=== PATIENT | female | born 2000 | race Caucasian/White ===

== ENCOUNTER → 2023-01-16 | Outpatient (CLI) | payer MEDICAID, SELFPAY ==
[2023-01-16 11:17] LABS: Absolute Lymphocyte Count 1.41 X10^3/uL (0.83-4.51); Absolute Neutrophil Count 4.7 X10^3/uL (2.0-7.7); Basophil# 0.03 X10^3/uL; Basophil% 0.5 % (0-1); Eosinophil# 0.08 X10^3/uL; Eosinophils% 1.2 % (0-5); Hematocrit 41.2 % (37-47); Hemoglobin 13.9 g/dL (12.0-15.0); Lymphocyte # 1.41 X10^3/ul (0.83-4.51); Lymphocyte % 21.3 % (19-41); Mean Corp Hgb Conc 33.7 g/dL (32-36); Mean Corpuscular Hgb 29.7 pg (27.0-32.0); Mean Platelet Vol. 10.8 fl (6.2-12.0); Monocyte# 0.42 X10^3/uL; Monocyte% 6.3 % (0-10); NRBC Flagged by Analyzer 0 % (0-5); Neutrophil # 4.68 X10^3/uL (2.7-7.7); Neutrophil % 70.5 % (47-70); Platelet Count 208 K/mm3 (150-450); RBC Distribution Width CV 12.8 % (11.6-14.6); RBC Distribution Width SD 41.4 fl (35.1-43.9); Red Blood Count 4.68 M/mm3 (4.2-5.4); White Blood Count 6.6 K/mm3 (4.4-11.0)
[2023-01-16 12:21] LABS: HIV - WCH Non-Reactive (Nonreactive); Hepatitis B Surface Antigen Non-Reactive (Nonreactive); Hepatitis C Antibody Non-Reactive (Nonreactive); Rubella IgG Reactive (Nonreactive); Syphilis Antibodies Non-reactive
[2023-01-17 22:06] LABS: Chlamydia By Nucleic Acid AMP Negative (Negative)
[2023-01-18 14:20] LABS: Gonococcus By Nucleic Acid AMP Negative (Negative)
[2023-01-23 16:31] LABS: HPV Reflexed? NOT INDICATED
== END | disposition home or self-care (01) ==
PROVIDERS: Referring Provider Obstetrics & Gynecology; Visit Provider Obstetrics & Gynecology
DX: Z34.90 Encounter for supervision of normal pregnancy, unspecified, unspecified trimester (principal); Z12.4 Encounter for screening for malignant neoplasm of cervix
CPT/HCPCS: 36415; 85025; 86703; 86762; 86780; 86803; 86850; 86900; 86901; 87086; 87340; 87491; 87591; 88175; G0145

== ENCOUNTER → 2023-06-04 | Outpatient (CLI) | payer MEDICAID, SELFPAY ==
[2023-06-04 16:46] LABS: Absolute Lymphocyte Count 1.79 X10^3/uL (0.83-4.51); Basophil# 0.06 X10^3/uL; Basophil% 0.6 % (0-1); Eosinophil# 0.18 X10^3/uL; Eosinophils% 1.8 % (0-5); Hematocrit 32.4 % (37-47); Hemoglobin 10.2 g/dL (12.0-15.0); Lymphocyte # 1.79 X10^3/ul (0.83-4.51); Lymphocyte % 17.8 % (19-41); Mean Corp Hgb Conc 31.5 g/dL (32-36); Mean Platelet Vol. 10.5 fl (6.2-12.0); Monocyte# 0.73 X10^3/uL; Monocyte% 7.3 % (0-10); NRBC Flagged by Analyzer 0 % (0-5); Neutrophil % 69.7 % (47-70); Platelet Count 212 K/mm3 (150-450); RBC Distribution Width CV 13.6 % (11.6-14.6); RBC Distribution Width SD 45.7 fl (35.1-43.9); Red Blood Count 3.52 M/mm3 (4.2-5.4)
[2023-06-04 17:07] LABS: Glucose Challenge Gest 1H 50g 108 mg/dL (70-140)
[2023-06-04 21:38] LABS: HIV - WCH Non-Reactive (Nonreactive); Syphilis Antibodies Non-reactive
== END | disposition home or self-care (01) ==
PROVIDERS: Referring Provider Obstetrics & Gynecology; Visit Provider Obstetrics & Gynecology
DX: O09.90 Supervision of high risk pregnancy, unspecified, unspecified trimester (principal); Z13.1 Encounter for screening for diabetes mellitus; Z3A.00 Weeks of gestation of pregnancy not specified
CPT/HCPCS: 36415; 82950; 85025; 86703; 86780

== ENCOUNTER → 2023-06-28 | Outpatient (CLI) | payer MEDICAID, SELFPAY ==
--- NOTE | 2023-06-28 08:05 | US_ITS ---
STUDY: SECOND AND THIRD TRIMESTER OBSTETRICAL ULTRASOUND - LIMITED REASON FOR EXAM: Female, 23 years old growth -- 32 weeks LMP: November 15, 2022. PRIOR ULTRASOUND: None. TECHNIQUE: Transabdominal TECHNICAL QUALITY: Adequate. FINDINGS: There is a single intrauterine fetus. The fetus is in a cephalic presentation. There is demonstrated cardiac activity with a heart rate of 150 bpm. There is a normal amniotic fluid volume. The largest amniotic fluid pocket measures 5.0 cm. The amniotic fluid index (VIDHYA) is 14.8 cm. The placenta is posterior in location and is not low lying. There are Grade 1 placental changes. The cervix measures 4.1 cm in length. BIOMETRY: BPD: 8.7 cm: 35 weeks, 1 days HC: 30.1 cm: 34 weeks, 3 days AC: 30.2 cm: 34 weeks, 1 days FL: 6.4 cm: 33 weeks, 0 days Age by LMP: 32 weeks, 1 days. FAIZA by LMP: August 22, 2023. age by current US: 34 weeks, 0 days. FAIZA by current US: August 09, 2023. Estimated weight: 2343 grams, +/- 351 grams, 91 percentile. US/OB Limited With Biometrics IMPRESSION: Single live intrauterine gestation with a mean gestational age of 34 weeks. Electronically Signed: Charles Cr MD at 14:04 EDT ,
== END | disposition home or self-care (01) ==
LOC: OPUS 08:04
PROVIDERS: Referring Provider Obstetrics & Gynecology; Visit Provider Obstetrics & Gynecology
DX: O98.511 Other viral diseases complicating pregnancy, first trimester (principal); U07.1 COVID-19; Z3A.32 32 weeks gestation of pregnancy
CPT/HCPCS: 76816

== ENCOUNTER → 2023-07-11 | Outpatient (CLI) | payer MEDICAID, SELFPAY | END | disposition home or self-care (01) | LOC: LABSPEC 11:46 | PROVIDERS: Referring Provider Registered Nurse; Visit Provider Registered Nurse | DX: O23.40 Unspecified infection of urinary tract in pregnancy, unspecified trimester (principal) | CPT/HCPCS: 87086 ==

== ENCOUNTER → 2023-07-26 | Outpatient (CLI) | payer MEDICAID, SELFPAY ==
--- NOTE | 2023-07-26 08:03 | US_ITS ---
HISTORY: growth. TECHNIQUE: Transabdominal pelvic ultrasound was performed. 53 images. COMPARISON: 06/28/2023. FINDINGS: INTRAUTERINE GESTATION(s): Single. PRESENTATION: Cephalic. HEART MOTION: 150 bpm. PLACENTA: Fundal, grade 2. No placenta previa. CERVIX: Not well-visualized. AMNIOTIC FLUID INDEX (VIDHYA): 17.4 cm. Main vertical pocket 9.9 cm. biometry- BIPARIETAL DIAMETER: 9.3 cm, corresponding to 38 weeks 0 days. HEAD CIRCUMFERENCE: 34.2 cm, corresponding to 39 weeks 3 days. ABDOMINAL CIRCUMFERENCE: 34.9 cm, corresponding to 38 weeks 5 days. FEMUR LENGTH: 6.9 cm, corresponding to 35 weeks 3 days. ESTIMATED GESTATIONAL AGE: 38 weeks 0 days. ESTIMATED DUE DATE (FAIZA): 08/09/2023. ESTIMATED WEIGHT: 3357 g corresponding to 91st percentile US/OB Limited With Biometrics IMPRESSION: Single living intrauterine with an estimated gestational age of 38 weeks 0 days. Electronically Signed: Lorenza Capellan MD at 12:50 EDT ,
== END | disposition home or self-care (01) ==
PROVIDERS: Referring Provider Obstetrics & Gynecology; Visit Provider Obstetrics & Gynecology
DX: O23.43 Unspecified infection of urinary tract in pregnancy, third trimester (principal); Z3A.36 36 weeks gestation of pregnancy; O98.511 Other viral diseases complicating pregnancy, first trimester; U07.1 COVID-19
CPT/HCPCS: 76816; 87081; 87086; 87088

== ENCOUNTER → 2023-07-26 | Outpatient (CLI) | payer MEDICAID, SELFPAY | END | disposition home or self-care (01) | LOC: LABSPEC 14:01 | PROVIDERS: Visit Provider Advanced Practice Midwife | DX: Z34.90 Encounter for supervision of normal pregnancy, unspecified, unspecified trimester (principal) | CPT/HCPCS: 87081 ==

== ENCOUNTER 2023-08-11 21:28 | Outpatient (CLI) | payer MEDICAID, SELFPAY ==
[2023-08-11 21:38] VITALS: BMI 31.8
[2023-08-11 21:47] VITALS: BP 118/71; PULSE 111; PULSE 112; TEMP 37.1; O2SAT 98
[2023-08-11 22:12] VITALS: PULSE 102; O2SAT 98
[2023-08-11 22:13] LABS: ROM Internal Control Test YES-OK TO RESULT pt. (Internal QC); Record Kit Lot#, ROM+ K1409
[2023-08-11 22:31] LABS: Color, Urine Yellow (Yellow); Glucose, Dipstick Normal (Normal); Ketone-Dipstick Negative (Negative); Leukocyte Esterase-Dipstick 100 /ul (Negative); Nitrite-Dipstick Negative (Negative); Occult Blood-Urine Negative /ul (Negative); Protein-Dipstick 15 mg/dl (Negative); Urine Bilirubin Dipstick Negative (Negative); Urine Clarity Clear (Clear); Urine Urobilinogen Normal (Normal)
[2023-08-11 22:32] LABS: ROM Patient Test Negative (Negative)
--- NOTE | 2023-08-11 23:35 | OB.TRI.NOTE ---
HPI - General HPI Narrative SHELLEY CHAPPELL, is a 23 y/o @ 38 weeks 3 days who presents to L&D with contractions. upon exam per nursing she was found to be just a half of a cm dilated and having very mild infrequent contractions. She was monitored for 84 minutes. Maternal Data Information FAIZA Calculator Estimated Delivery Date Method Current WG Current Estimate 08/22/23 LMP (Uncertain) 38w 4d Other Estimates 08/19/23 Ultrasound #1 39w 0d PFSH PFSH Home Medications multivitamin no.47-iron fum 27 mg-folate no.1 1 mg-dha 300 mg capsule (PNV-DHA) 1 cap PO 01/11/23 [History Last Taken 08/11/23] aspirin 81 mg tablet,delayed release 81 mg PO DAILY 05/31/23 [History Last Taken 08/11/23] famotidine 20 mg tablet (Pepcid) 20 mg PO DAILY 05/31/23 [History Last Taken Unknown] ferrous sulfate 325 mg (65 mg iron) tablet 325 mg PO DAILY 06/13/23 [History Last Taken Unknown] Allergy/AdvReac Type Severity Reaction Status Date / Time No Known Allergies Allergy Verified 08/11/23 21:38 Social History adopted: No household members: significant other current occupational status: employed 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 current occupational exposures/hazards: No pets and animals: Yes (Not managing litterbox) pets and animals: cat(s) history of recent travel: No sexually active: Yes Smoking Status: Former smoker Electronic Cigarette Use: with nicotine alcohol intake: former year quit: 2021 substance use type: does not use well-balanced diet: daily or most days caffeine: Yes Type: carbonated beverages Number of servings: 1 eating out: 4 or more times/week during the past year weight has: remained stable what type of physical activity do you participate in: none rosie/religious: None seatbelt use: always do you feel safe at home: Yes additional social history: BF- Fernando [employer] History 2 Elective abortions Hx Para 0 Spontaneous abortions 1 Hx # Term Pregnancies Ectopic pregnancies Hx # Pregnancies Multiple births # of living children 0 Past Pregnancies Del. Date Name GA/Weeks Outcome Route Bth Weight Infant Gen Labor Lgth Anesthesia Del Locatn Provider FOB 11/30/21 miscarriage 4-8 wks Visit Details Expected Delivery Route/Plan Labor Preferences- CB/BF classes: enc labor support person: labor intervention preferences: [] pain management options preferred: [] cut cord/dad catch: [] : [] PP control planned: [] discussed possible routes of delivery and associated risks: [] special requests: [] Plans Covid status: + 1st trim Flu vaccine: 07/11 Tdap vaccine: 07/11 Rhogam: [] LARC form signed: 07/11 Problem list reviewed and updated with the most current plan of care details and appropriate orders placed. Relevant counseling for the gestational age provided. Continue routine care and follow up unless otherwise noted in visit notes/problem list details OB Flowsheet Initial Weight: Not Recorded Date <del>?</del> EGA Weight BP Urine Prot <del>?</del> Glucose FHR FuHt Pres Dilation <del>?</del> Effaced St Visit Note 01/16/23 <del>?</del> 8w 6d 125 lb 4 oz 135/75 <del>?</del> 180 <del>?</del> SM- doing well. no cramping. CR consistent with dates SM- doing well. no cramping. CRL 2.4cm consistent with dates 02/19/23 <del>?</del> 13w 5d 128 lb 4 oz 104/68 Negative <del>?</del> Negative 160 <del>?</del> MH-No VB or cramping. Covid last week-start baby ASA and growth US discussed. 03/19/23 <del>?</del> 17w 5d 132 lb 108/60 Negative <del>?</del> Negative 159 <del>?</del> MH-No VB, LOF. No FM yet. US 03/22. Taking ASA 04/16/23 <del>?</del> 21w 5d 144 lb 124/58 Trace <del>?</del> Negative 145 22 <del>?</del> KW- +fm. no cramping/vb/lof. declines AFP and 28 week labs discussed. no concerns 05/15/23 <del>?</del> 25w 6d 155 lb 6 oz 112/73 Negative <del>?</del> Negative 145 27 <del>?</del> JV- no lof, vaginal bleeding, or dec fm. no complaints. glucola ordered. 05/31/23 <del>?</del> 28w 1d 163 lb 2 oz 126/60 Trace <del>?</del> Negative 150 28 <del>?</del> KW- no vb/cramping. good FM. Missed glucose draw and needs done again, to do next week 06/13/23 <del>?</del> 30w 0d 168 lb 4 oz 118/71 Negative <del>?</del> Negative 140 30 <del>?</del> JV- pt was told that she has a yeast infection but is allergic to monistat. ordering diflucan. wants note for dentist and work note. also was told that she has a ut and was treated. will re-test in a month. 06/28/23 <del>?</del> 32w 1d 173 lb 8 oz 116/78 Negative <del>?</del> Negative 165 32 <del>?</del> KW-no vb/lof/cramping. good fm. no UTI/yeast sx today. Reculture next visit 07/11/23 <del>?</del> 34w 0d 178 lb 4 oz 107/66 <del>?</del> 150 34 <del>?</del> LC- no vb/lof/ctx. good fm. flu, tdap and larc today. cbe classes next week. has growth in 2 weeks scheduled. 07/26/23 <del>?</del> 36w 1d 184 lb 2 oz 107/70 <del>?</del> 146 38 0 <del>?</del> kw-no vb/lof/ctx. good fm. GBS today. had growth us today. 08/02/23 <del>?</del> 37w 1d 183 lb 6 oz 107/68 Negative <del>?</del> Negative 130 39 0 <del>?</del> KW-no vb/lof/ctx. good fm. gbs neg. growth 91% 08/07/23 <del>?</del> 37w 6d 187 lb 104/73 Negative <del>?</del> Negative 140 39 1 <del>?</del> 60 -2 KW-no vb/lof/regular ctx. labor precautions reviewed ROS Constitutional Constitutional: Reports systems reviewed and no addt'l complaints, except as documented Gastrointestinal Gastrointestinal: Denies bloating, constipation, cramping, diarrhea, nausea or vomiting Genitourinary Genitourinary: Reports other Details: Denies vaginal odor, vaginal bleeding, or vaginal discharge ; Denies difficulty urinating or flank pain NST FHR Rate Baby A Baseline: 150 Variability:: Moderate Accelerations:: 15 x 15 Decelerations:: None NST Reactive:: Yes FHR Category:: Category I Assessment & Plan (1) False labor after 37 completed weeks of gestation: PLAN: labor precautions discussed pt discharged to home. Charges/Coding Multi Select Codes Urinary/Genital Urinary/Genital CPT Codes: 42426-78 non-stress test Interp
--- NOTE | 2023-08-11 23:35 | OB.TRI.HP_ITS ---
HPI - General HPI Narrative SHELLEY CHAPPELL, is a 23 y/o @ 38 weeks 3 days who presents to L&D with contractions. upon exam per nursing she was found to be just a half of a cm dilated and having very mild infrequent contractions. She was monitored for 84 minutes. Maternal Data Information FAIZA Calculator Estimated Delivery Date Method Current WG Current Estimate 08/22/23 LMP (Uncertain) 38w 4d Other Estimates 08/19/23 Ultrasound #1 39w 0d PFSH PFSH Home Medications multivitamin no.47-iron fum 27 mg-folate no.1 1 mg-dha 300 mg capsule (PNV-DHA) 1 cap PO 01/11/23 [History Last Taken 08/11/23] aspirin 81 mg tablet,delayed release 81 mg PO DAILY 05/31/23 [History Last Taken 08/11/23] famotidine 20 mg tablet (Pepcid) 20 mg PO DAILY 05/31/23 [History Last Taken Unknown] ferrous sulfate 325 mg (65 mg iron) tablet 325 mg PO DAILY 06/13/23 [History Last Taken Unknown] Allergy/AdvReac Type Severity Reaction Status Date / Time No Known Allergies Allergy Verified 08/11/23 21:38 Social History adopted: No household members: significant other current occupational status: employed 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 current occupational exposures/hazards: No pets and animals: Yes (Not managing litterbox) pets and animals: cat(s) history of recent travel: No sexually active: Yes Smoking Status: Former smoker Electronic Cigarette Use: with nicotine alcohol intake: former year quit: 2021 substance use type: does not use well-balanced diet: daily or most days caffeine: Yes Type: carbonated beverages Number of servings: 1 eating out: 4 or more times/week during the past year weight has: remained stable what type of physical activity do you participate in: none rosie/jewish: None seatbelt use: always do you feel safe at home: Yes additional social history: BF- Fernando [employer] History 2 Elective abortions Hx Para 0 Spontaneous abortions 1 Hx # Term Pregnancies Ectopic pregnancies Hx # Pregnancies Multiple births # of living children 0 Past Pregnancies Del. Date Name GA/Weeks Outcome Route Bth Weight Infant Gen Labor Lgth Anesthesia Del Locatn Provider FOB 11/30/21 miscarriage 4-8 wks Visit Details Expected Delivery Route/Plan Labor Preferences- CB/BF classes: enc labor support person: labor intervention preferences: [] pain management options preferred: [] cut cord/dad catch: [] : [] PP control planned: [] discussed possible routes of delivery and associated risks: [] special requests: [] Plans Covid status: + 1st trim Flu vaccine: 07/11 Tdap vaccine: 07/11 Rhogam: [] LARC form signed: 07/11 Problem list reviewed and updated with the most current plan of care details and appropriate orders placed. Relevant counseling for the gestational age provided. Continue routine care and follow up unless otherwise noted in visit notes/problem list details OB Flowsheet Initial Weight: Not Recorded Date -?-?-?-?-?-?-?-?-?-?-?-?- EGA Weight BP Urine Prot -?-?-?-?-?-?-?-?-?-?-?-?- Glucose FHR FuHt Pres Dilation -?-?-?-?-?-?-?-?-?-?-?-?- Effaced St Visit Note 01/16/23 -?-?-?-?-?-?-?-?-?-?-?-?- 8w 6d 125 lb 4 oz 135/75 -?-?-?-?-?-?-?-?-?-?-?-?- 180 -?-?-?-?-?-?-?-?-?-?-?-?- SM- doing well. no cramping. CR consistent with dates SM- doing well. no cramping. CRL 2.4cm consistent with dates 02/19/23 -?-?-?-?-?-?-?-?-?-?-?-?- 13w 5d 128 lb 4 oz 104/68 Nega tive -?-?-?-?-?-?-?-?-?-?-?-?- Negative 160 -?-?-?-?-?-?-?--?-?-?-?-?- MH-No VB or cram ping. Covid last week-start baby ASA and growth US discussed. 03/19/23 -?-?-?-?-?-?-?-?-?-?-?-?- 17w 5d 132 lb 108/60 Negative -?-?-?-?-?-?-?-?-?-?-?-?- Negative 159 -?-?-?-?-?-?-?-?-?-?-?-?- MH-No VB, LOF. N o FM yet. US 03/22. Taking ASA 04/16/23 -?-?-?-?-?-?-?-?-?-?-?-?- 21w 5d 144 lb 124/58 Trace -?-?-?-?-?-?-?-?-?-?-?-?- Negative 145 22 -?-?-?-?-?-?-?-?-?-?-?-?- KW- +fm. no cram ping/vb/lof. declines AFP and 28 week labs discussed. no concerns 05/15/23 -?-?-?-?-?-?-?-?-?-?-?-?- 25w 6d 155 lb 6 oz 112/73 Nega tive -?-?-?-?-?-?-?-?-?-?-?-?- Negative 145 27 -?-?-?-?-?-?-?-?-?-?-?-?- JV- no lof, vagi nal bleeding, or dec fm. no complaints. glucola ordered. 05/31/23 -?-?-?-?-?-?-?-?-?-?-?-?- 28w 1d 163 lb 2 oz 126/60 Trac e -?-?-?-?-?-?-?-?-?-?-?-?- Negative 150 28 -?-?-?-?-?-?-?-?-?-?-?-?- KW- no vb/crampi ng. good FM. Missed glucose draw and needs done again, to do next week 06/13/23 -?-?-?-?-?-?-?-?-?-?-?-?- 30w 0d 168 lb 4 oz 118/71 Nega tive -?-?-?-?-?-?-?-?-?-?-?-?- Negative 140 30 -?-?-?-?-?-?-?-?-?-?-?-?- JV- pt was told that she has a yeast infection but is allergic to monistat. ordering diflucan. wants note for dentist and work note. also was told that she has a ut and was treated. will re-test in a month. 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 good fm. no UTI/yeast sx today. Reculture next visit 07/11/23 -?-?-?-?-?-?-?-?-?-?-?-?- 34w 0d 178 lb 4 oz 107/66 -?-?-?-?-?-?-?-?-?-?-?-?- 150 34 -?-?-?-?-?-?-?-?-?-?-?-?- LC- no vb/lof/ct x. good fm. flu, tdap and larc today. cbe classes next week. has growth in 2 weeks scheduled. 07/26/23 -?-?-?-?-?-?-?-?-?-?-?-?- 36w 1d 184 lb 2 oz 107/70 -?-?-?-?-?-?-?-?-?-?-?-?- 146 38 0 -?-?-?-?-?-?-?-?-?-?-?-?- kw-no vb/lof/ctx . good fm. GBS today. had growth us today. 08/02/23 -?-?-?-?-?-?-?-?-?-?-?-?- 37w 1d 183 lb 6 oz 107/68 Nega tive -?-?-?-?-?-?-?-?-?-?-?-?- Negative 130 39 0 -?-?-?-?-?-?-?-?-?-?-?-?- KW-no vb/lof/ctx . good fm. gbs neg. growth 91% 08/07/23 -?-?-?-?-?-?-?-?-?-?-?--?- 37w 6d 187 lb 104/73 Negative -?-?-?-?-?-?-?-?-?-?-?-?- Negative 140 39 1 -?-?-?-?-?-?-?-?-?-?-?-?- 60 -2 KW-no vb/l of/regular ctx. labor precautions reviewed ROS Constitutional Constitutional: Reports systems reviewed and no addt'l complaints, except as documented Gastrointestinal Gastrointestinal: Denies bloating, constipation, cramping, diarrhea, nausea or vomiting Genitourinary Genitourinary: Reports other Details: Denies vaginal odor, vaginal bleeding, or vaginal discharge ; Denies difficulty urinating or flank pain NST FHR Rate Baby A Baseline: 150 Variability:: Moderate Accelerations:: 15 x 15 Decelerations:: None NST Reactive:: Yes FHR Category:: Category I Assessment & Plan (1) False labor after 37 completed weeks of gestation: PLAN: labor precautions discussed pt discharged to home. Charges/Coding Multi Select Codes Urinary/Genital Urinary/Genital CPT Codes: 66105-00 non-stress test Interp
== END 2023-08-11 23:18 | disposition home or self-care (01) ==
LOC: WPOUT 21:32 → WP 21:33
PROVIDERS: Visit Provider Obstetrics & Gynecology
DX: O47.1 False labor at or after 37 completed weeks of gestation (principal); Z3A.38 38 weeks gestation of pregnancy
CPT/HCPCS: 59025; 59050; 81002; 84112; 99221; G0378

== ENCOUNTER → 2023-08-14 | Outpatient (CLI) | payer MEDICAID, SELFPAY ==
[2023-08-14 11:37] LABS: Hemoglobin A1c 4.7 % (3.8-5.6)
== END | disposition home or self-care (01) ==
PROVIDERS: Referring Provider Advanced Practice Midwife; Visit Provider Advanced Practice Midwife
DX: Z13.1 Encounter for screening for diabetes mellitus (principal)
CPT/HCPCS: 36415; 83036

== ENCOUNTER 2023-08-16 18:53 | Inpatient (IN) | payer MEDICAID, SELFPAY ==
[2023-08-16 19:29] VITALS: BP 111/65; PULSE 113
[2023-08-16 19:30] VITALS: TEMP 36.6; O2SAT 99
[2023-08-16] MEDS: Lactated Ringers 1,000 ML 50 ML IV (19:30)
[2023-08-16 19:39] VITALS: BMI 31.6
[2023-08-16 19:48] LABS: Absolute Neutrophil Count 6.8 X10^3/uL (2.0-7.7); Basophil# 0.02 X10^3/uL; Basophil% 0.2 % (0-1); Eosinophil# 0.09 X10^3/uL; Hematocrit 37.9 % (37-47); Hemoglobin 12.3 g/dL (12.0-15.0); Lymphocyte % 17.2 % (19-41); Mean Corp Hgb Conc 32.5 g/dL (32-36); Mean Corpuscular Hgb 28.9 pg (27.0-32.0); Mean Corpuscular Volume 89.2 fL (81-99); Mean Platelet Vol. 11.1 fl (6.2-12.0); Monocyte# 0.67 X10^3/uL; Monocyte% 7.2 % (0-10); NRBC Flagged by Analyzer 0 % (0-5); Neutrophil # 6.78 X10^3/uL (2.7-7.7); Neutrophil % 73.1 % (47-70); Platelet Count 197 K/mm3 (150-450); RBC Distribution Width CV 15.1 % (11.6-14.6); RBC Distribution Width SD 48.3 fl (35.1-43.9); Red Blood Count 4.25 M/mm3 (4.2-5.4); White Blood Count 9.3 K/mm3 (4.4-11.0)
[2023-08-16 20:20] LABS: Syphilis Antibodies Non-reactive
[2023-08-16] MEDS: miSOPROStol 25 MCG TABLET VAGINAL (20:25)
--- NOTE | 2023-08-16 21:34 | HP.PCM.OB_ITS ---
HPI - General General Date of Admission: 08/16/23 HPI Narrative SHELLEY CHAPPELL, is a 23 F who presents Maternal Data Information FAIZA Calculator Estimated Delivery Date Method Current WG Current Estimate 08/22/23 LMP (Uncertain) 39w 1d Other Estimates 08/19/23 Ultrasound #1 39w 4d PFSH PFS Medical History (Updated 08/16/23 @ 21:[address] Chelo Adan MD) Depression Polyhydramnios Home Medications multivitamin no.47-iron fum 27 mg-folate no.1 1 mg-dha 300 mg capsule (PNV-DHA) 1 cap PO DAILY ask provid 01/11/23 [History Last Taken 08/16/23] aspirin 81 mg tablet,delayed release 81 mg PO DAILY ask provider 05/31/23 [History Last Taken 08/16/23] famotidine 20 mg tablet (Pepcid) 20 mg PO DAILY ask provider 05/31/23 [History Last Taken 08/16/23] ferrous sulfate 325 mg (65 mg iron) tablet 325 mg PO DAILY ask provider 06/13/23 [History Last Taken Unknown] Allergy/AdvReac Type Severity Reaction Status Date / Time No Known Allergies Allergy Verified 08/16/23 19:34 Social History adopted: No household members: significant other current occupational status: employed current occupation: [employer]OL [employer] current occupational exposures/hazards: No pets and animals: Yes (Not managing litterbox) pets and animals: cat(s) history of recent travel: No sexually active: Yes Smoking Status: Former smoker Electronic Cigarette Use: with nicotine alcohol intake: former year quit: 2021 substance use type: does not use well-balanced diet: daily or most days caffeine: Yes Type: carbonated beverages Number of servings: 1 eating out: 4 or more times/week during the past year weight has: remained stable what type of physical activity do you participate in: none rosie/denominational: None seatbelt use: always do you feel safe at home: Yes additional social history: BF- Fernando [employer] History 2 Elective abortions Hx Para 0 Spontaneous abortions 1 Hx # Term Pregnancies Ectopic pregnancies Hx # Pregnancies Multiple births # of living children 0 Past Pregnancies Del. Date Name GA/Weeks Outcome Route Bth Weight Gen Labor Lgth Anesthesia Del Locatn Provider FOB 02/16/22 miscarriage 4-8 wks Visit Details Expected Delivery Route/Plan Labor Preferences- CB/BF classes: enc labor support person: labor intervention preferences: [] pain management options preferred: [] cut cord/dad catch: [] : [] PP control planned: [] discussed possible routes of delivery and associated risks: [] special requests: [] Plans Covid status: + 1st trim Flu vaccine: 07/11 Tdap vaccine: 07/11 Rhogam: [] LARC form signed: 07/11 Problem list reviewed and updated with the most current plan of care details and appropriate orders placed. Relevant counseling for the gestational age provided. Continue routine care and follow up unless otherwise noted in visit notes/problem list details OB Flowsheet Initial Weight: Not Recorded Date -?-?-?-?-?-?-?-?-?-?-?-?- EGA Weight BP Urine Prot -?-?-?-?-?-?-?-?-?-?-?-?- Glucose FHR FuHt Pres Dilation -?-?-?-?-?-?-?-?-?-?-?-?- Effaced St Visit Note 01/16/23 -?-?-?-?-?-?-?-?-?-?-?-?- 8w 6d 125 lb 4 oz 135/75 -?-?-?-?-?-?-?-?-?-?-?-?- 180 -?-?-?-?-?-?-?-?-?-?-?-?- SM- doing well. no cramping. CR consistent with dates SM- doing well. no cramping. CRL 2.4cm consistent with dates 02/19/23 -?-?-?-?-?-?-?-?-?-?-?-?- 13w 5d 128 lb 4 oz 104/68 Nega tive -?-?-?-?-?-?-?-?-?-?-?-?- Negative 160 -?-?-?-?-?-?-?-?-?-?-?-?- MH-No VB or cram ping. Covid last week-start baby ASA and growth US discussed. 03/19/23 -?-?-?-?-?-?-?-?-?-?-?-?- 17w 5d 132 lb 108/60 Negative -?-?-?-?-?-?-?-?-?-?-?-?- Negative 159 -?-?-?-?-?-?-?-?-?-?-?-?- MH-No VB, LOF. N o FM yet. US 03/22. Taking ASA 04/16/23 -?-?-?-?-?-?-?-?-?-?-?-?- 21w 5d 144 lb 124/58 Trace -?-?-?-?-?-?-?-?-?-?-?-?- Negative 145 22 -?-?-?-?-?-?-?-?-?-?-?-?- KW- +fm. no cram ping/vb/lof. declines AFP and 28 week labs discussed. no concerns 05/15/23 -?-?-?-?-?-?-?-?-?-?-?-?- 25w 6d 155 lb 6 oz 112/73 Nega tive -?-?-?-?-?-?-?-?-?-?-?-?- Negative 145 27 -?-?-?-?-?-?-?-?-?-?-?-?- JV- no lof, vagi nal bleeding, or dec fm. no complaints. glucola ordered. 05/31/23 -?-?-?-?-?-?-?-?-?-?-?-?- 28w 1d 163 lb 2 oz 126/60 Trac e -?-?-?-?-?-?-?-?-?-?-?-?- Negative 150 28 -?-?-?-?-?-?-?-?-?-?-?-?- KW- no vb/crampi ng. good FM. Missed glucose draw and needs done again, to do next week 06/13/23 -?-?-?-?-?-?-?-?-?-?-?-?- 30w 0d 168 lb 4 oz 118/71 Nega tive -?-?-?-?-?-?-?-?-?-?-?-?- Negative 140 30 -?-?-?-?-?-?-?-?-?-?-?-?- JV- pt was told that she has a yeast infection but is allergic to monistat. ordering diflucan. wants note for dentist and work note. also was told that she has a ut and was treated. will re-test in a month. 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 good fm. no UTI/yeast sx today. Reculture next visit 07/11/23 -?-?-?-?-?-?-?-?-?-?-?-?- 34w 0d 178 lb 4 oz 107/66 -?-?-?-?-?-?-?-?-?-?-?-?- 150 34 -?-?-?-?-?-?-?-?-?-?-?-?- LC- no vb/lof/ct x. good fm. flu, tdap and larc today. cbe classes next week. has growth in 2 weeks scheduled. 07/26/23 -?-?-?-?-?-?-?-?-?-?-?-?- 36w 1d 184 lb 2 oz 107/70 -?-?-?-?-?-?-?-?-?-?-?-?- 146 38 0 -?-?-?-?-?-?-?-?-?-?-?-?- kw-no vb/lof/ctx . good fm. GBS today. had growth us today. 08/02/23 -?-?-?-?-?-?-?-?-?-?-?-?- 37w 1d 183 lb 6 oz 107/68 Nega tive -?-?-?-?-?-?-?-?-?-?-?-?- Negative 130 39 0 -?-?-?-?-?-?-?-?-?-?-?-?- KW-no vb/lof/ctx . good fm. gbs neg. growth 91% 08/07/23 -?-?-?-?-?-?-?-?-?-?-?-?- 37w 6d 187 lb 104/73 Negative -?-?-?-?-?-?-?-?-?-?-?-?- Negative 140 39 1 -?-?-?-?-?-?-?-?-?-?-?-?- 60 -2 KW-no vb/l of/regular ctx. labor precautions reviewed 08/14/23 -?-?-?-?-?-?-?-?-?-?-?-?- 38w 6d 191 lb 8 oz 113/74 Nega tive -?-?-?-?-?-?-?-?-?-?-?-?- Negative 135 41 1 0 -?-?-?-?-?-?-?-?-?-?-?-?- 60 -3 KW- no vb/ lof/ reg ctx. good fm. growth US from 07/26 reports 3357g. at 40 weeks will be 4009 grams. discussed 40 week IOL. US ordered for size >dates KW- no vb/lof/ reg ctx. good fm. growth US from 07/26 reports 3357g. at 40 weeks will be 4009 grams. VIDHYA in office by today-. IOL scheduled for . NST today NST FHR Rate Baby A Baseline: 150 Variability:: Moderate Accelerations:: 15 x 15 Decelerations:: None NST Reactive:: Yes FHR Category:: Category I Uterine Activity:: irregular ROS Constitutional Constitutional: Reports systems reviewed and no addt'l complaints, except as documented Eyes Eyes: Denies change in vision ENT HEENT: Reports systems reviewed and no addt'l complaints, except as documented; Denies headache(s) Cardiovascular Cardiovascular: Reports systems reviewed and no addt'l complaints, except as documented; Denies chest pain or dyspnea Respiratory/Chest Respiratory/Chest: Reports systems reviewed and no addt'l complaints, except as documented Gastrointestinal Gastrointestinal: Reports systems reviewed and no addt'l complaints, except as documented; Denies abdominal pain Genitourinary Genitourinary: Reports systems reviewed and no addt'l complaints, except as documented, contractions Details: present (irregular) and movement Details: present; Denies dysuria or genital lesions Musculoskeletal Musculoskeletal: Reports systems reviewed and no addt'l complaints, except as documented Neurologic Neurologic: Reports systems reviewed and no addt'l complaints, except as documented Endocrine Endocrinology: Reports systems reviewed and no addt'l complaints, except as documented Vital Signs Vital Signs Vital Signs: 08/16/23 19:29 08/16/23 19:29 08/16/23 19:30 Temperature Temperature Source Temporal Pulse Rate 113 H Blood Pressure 111/65 BP Systolic 111 BP Diastolic 65 Pulse Ox 08/16/23 19:30 08/16/23 19:30 Temperature 97.8 F Temperature Source Pulse Rate Blood Pressure BP Systolic BP Diastolic Pulse Ox 99 Weight Weight: 190 lb Body Mass Index (BMI) 31.6 Physical Exam Const alert, oriented x3, no apparent distress and healthy appearing HEENT normocephalic and moist oral mucous membranes Head and Scalp: atraumatic Neck full ROM, no lymphadenopathy, supple and thyroid normal General: trachea midline Lymph Lymphatic: no lymphadenopathy noted Chest inspection of chest normal Resp normal respiratory effort Cardio regular rate GI normal to inspection, nondistended, normoactive bowel sounds, soft to palpation and non-tender Inspection: gravid external exam normal Manual OB Exam: estimated gestational size appropriate, presentation cephalic, dilated, effaced and station Extremity normal to inspection General Extremity: Negative for edema Skin no rashes or lesions noted Neuro no focal motor deficits and deep tendon reflexes 2+ bilaterally Motor Exam: strength 5/5 throughout and clonus absent Psych mental status grossly normal Labs Labs Labs: Blood Type O POSITIVE Antibody Screen NEGATIVE Hct 37.9 % (37-47) Hgb 12.3 g/dL (12.0-15.0) Obstetrics Ultrasound Syphilis Total Ab Non-reactive Rubella IgG Antibody Reactive (Nonreactive) Hep Bs Antigen Non-Reactive (Nonreactive) Hepatitis C Antibody Non-Reactive (Nonreactive) Chlamydia DNA (CRYSTAL) Negative (Negative) N.gonorrhoeae DNA (CRYSTAL) Negative (Negative) HIV 1&2 Antibody Non-Reactive (Nonreactive) Glucose 1 Hr 50 gm 108 mg/dL (70-140) Assessment & Plan (1) Polyhydramnios: (2) UTI (urinary tract infection) during : COMMENT: Treated from urgent care, repeated 07/11 (3) Anemia in preg-unspec: COMMENT: add FE (4) GERD (gastroesophageal reflux disease): (5) : QUALIFIERS: Weeks of gestation: 38 weeks Qualified Code(s): Z3A.38 - 38 weeks gestation of COMMENT: GBS neg, Declined NIPT & Carrier testing, nl anatomy (6) Supervision of high-risk : QUALIFIERS: Trimester: unspecified trimester Qualified Code(s): O09.90 - Supervision of high risk , unspecified, unspecified trimester COMMENT: [id number], FAIZA 08/22/23 BF- Fernando (7) COVID-19 affecting in first trimester: COMMENT: daily low dose ASA and growth US 32 (91%) and 36 wk(91%) PLAN: Plan Patient presents IOL, plan management for with cytotec. Pain management: plans epidural. GBS negative. Management of any complications: none I have reviewed the [facility] and made any clinically relevant updates.
[2023-08-16 21:37] VITALS: BP 106/54; PULSE 98; TEMP 37.1; O2SAT 97
[2023-08-17] VITALS (55 sets, daily range): BP systolic 99–130; BP diastolic 51–84; PULSE 92–214; RESP 16; TEMP 36.3–37.5; O2SAT 93–100
[2023-08-17] MEDS: miSOPROStol 50 MCG TABLET VAGINAL (00:26)
[2023-08-17] MEDS: LACTATED RINGERS 500 ML 999 ML IV ×3 (03:45→20:31)
--- NOTE | 2023-08-17 08:19 | PCM.PN.BLA ---
Progress Note Coping well with contractions current tracing: FHT: 150 Moderate variability reactive no decelerations category I tracing [place]: 1-2 minute Contractions- Membranes: intact SVE: /- reviewed tracing abnormalities since last note: NA A/P: Continue with position changes Consider dubose bulb with pitocin Start pitocin per protocol Epidural per anesthesia Anticipate Dr Adan aware of plan and agrees with plan of care Assessment & Plan Assessment/Plan (1) Encounter for induction of labor: (2) Polyhydramnios: (3) Uterine size date discrepancy : (4) False labor after 37 completed weeks of gestation: (5) UTI (urinary tract infection) during : (6) Anemia in preg-unspec: (7) GERD (gastroesophageal reflux disease): (8) COVID-19 affecting in first trimester: (9) Hx of one miscarriage: (10) Supervision of high-risk : QUALIFIERS: Trimester: unspecified trimester Qualified Code(s): O09.90 - Supervision of high risk , unspecified, unspecified trimester (11) : QUALIFIERS: Weeks of gestation: 38 weeks Qualified Code(s): Z3A.38 - 38 weeks gestation of (12) Seasonal allergies: Procedures Urinary/Genital [id number]: No Charge
[2023-08-17] MEDS: 0.9% Normal Saline Single 100 ML IV.SOLN. INTRA-UTER (11:50)
[2023-08-17] MEDS: fentaNYL-bupivacaine (epidural) 100 ML BAG EPIDURAL ×3 (13:13→17:47)
--- NOTE | 2023-08-17 14:17 | PCM.PN.BLA ---
Progress Note comfortable with epidural current tracing: FHT: 150 Moderate variability reactive category I tracing [place]: 2-3 minute Contractions Membranes: ruptured for clear fluid 1347 SVE:/-1 reviewed tracing abnormalities since last note: late deceleration noted with rupture of membranes. A/P: Continue with position changes start pitocin if appropriate per protocol Epidural per anesthesia Anticipate Dr Adan aware of plan and agrees with plan of care Assessment & Plan Assessment/Plan (1) Encounter for induction of labor: (2) Polyhydramnios: (3) Uterine size date discrepancy : (4) False labor after 37 completed weeks of gestation: (5) UTI (urinary tract infection) during : (6) Anemia in preg-unspec: (7) GERD (gastroesophageal reflux disease): (8) COVID-19 affecting in first trimester: (9) Hx of one miscarriage: (10) Supervision of high-risk : QUALIFIERS: Trimester: unspecified trimester Qualified Code(s): O09.90 - Supervision of high risk , unspecified, unspecified trimester (11) : QUALIFIERS: Weeks of gestation: 38 weeks Qualified Code(s): Z3A.38 - 38 weeks gestation of (12) Seasonal allergies: Multi Select Codes Urinary/Genital Urinary/Genital CPT Codes: No Charge
[2023-08-17] MEDS: Lactated Ringers 1,000 ML 50 ML IV (15:14)
--- NOTE | 2023-08-17 16:42 | PCM.PN.BLA ---
Progress Note comfortable with epidural current tracing: FHT: 140 Moderate variability reactive no decelerations category I tracing [place]: 2-3 minutes. MVU 160-200 Membranes: ruptured- remains clear SVE: /-1 reviewed tracing abnormalities since last note: A/P: Continue with position changes Start pitocin per protocol to increase MVU to 200-250 per uptodate recommendations Epidural per anesthesia Anticipate Dr Adan aware of plan and agrees with plan of care Assessment & Plan Assessment/Plan (1) Encounter for induction of labor: (2) Polyhydramnios: (3) Uterine size date discrepancy : (4) False labor after 37 completed weeks of gestation: (5) UTI (urinary tract infection) during : (6) Anemia in preg-unspec: (7) GERD (gastroesophageal reflux disease): (8) COVID-19 affecting in first trimester: (9) Hx of one miscarriage: (10) Supervision of high-risk : QUALIFIERS: Trimester: unspecified trimester Qualified Code(s): O09.90 - Supervision of high risk , unspecified, unspecified trimester (11) : QUALIFIERS: Weeks of gestation: 38 weeks Qualified Code(s): Z3A.38 - 38 weeks gestation of (12) Seasonal allergies: Multi Select Codes Urinary/Genital Urinary/Genital CPT Codes: No Charge
[2023-08-17] MEDS: Oxytocin 15 Units/NS 250ml 15 UNITS/250 ML IV.SOLN 2 UNITS IV (16:47)
[2023-08-17] MEDS: 0.9% Saline Lock 10 ML Syringe IV (18:25)
[2023-08-17] MEDS: Ondansetron 4 MG/2 ML Vial IV (18:54)
[2023-08-17] MEDS: Lactated Ringers 1,000 ML 200 ML IV (19:43)
[2023-08-17] MEDS: Amnioinfusion- 0.9% NS 1,000 ML IV.SOLN. 1 ML INTRA-UTER (20:44)
[2023-08-17] MEDS: Cefazolin 2 GM in 0.9% Normal Saline (100mL Bag) 100 ML IV (21:57)
[2023-08-17] MEDS: Methylergonovine 0.2 MG/ML Ampul IM (22:00)
[2023-08-17] MEDS: Azithromycin 500 MG in Dextrose 5%-Water (250mL Bag) 250 ML 250 MG IV (22:20)
--- NOTE | 2023-08-17 22:26 | EX.PCM.OBRPT ---
Assessment & Plan (1) Non-reassuring heart rate with late deceleration: (2) delivery delivered: COMMENT: 9 cm 39 IOL polyhydramnios, 8lb 7 ounces SM/KW recurrent lates ?small pelvis Maternal Data Information FAIZA Calculator Estimated Delivery Date Method Current WG Current Estimate 08/22/23 LMP (Uncertain) 39w 2d Other Estimates 08/19/23 Ultrasound #1 39w 5d Final FAIZA Source: LMP Gestational age: 39 Details Operative Information Date of Procedure: 08/17/23 Pre-Operative Diagnosis: see a/p diagnoses Post-Operative Diagnosis: same Indications Narrative: surgeon: Chelo Adan MD Procedure Type: low transverse system architect #1: Olena Munoz Type of Anesthesia: Epidural Special Medications: none Drain: [place] to straight drain Estimated Blood Loss: 700 Fluids Replaced: crystalloid Findings Description of Procedure: The patient was placed in the dorsal supine position with leftward tilt. Patient was prepped and draped in the normal sterile fashion. Pfannenstiel skin incision was made with the scalpel and carried through to the underlying layer of fascia with the scalpel. Fascia was nicked in the midline and the incision extended laterally. The rectus bellies were dissected off superiorly and inferiorly with out complication both sharply and bluntly. The peritoneum was entered digitally. The incision was stretched and a low transverse uterine incision was made with the scalpel. The 's head was delivered atraumatically followed by the anterior and posterior shoulders without complication the rest of the delivered. The cord was clamped and cut and the was handed off to awaiting nurse. The placenta was delivered spontaneously immediately following and was noted to be intact and have a three-vessel cord. The uterus was exteriorized cleared of all clots and debris, and the incision was closed in a single layer closure using #1 Monocryl. The ovaries and fallopian tubes were noted to be within normal limits. The uterus was returned to the maternal abdomen and gutters were cleared of all clots and debris. The peritoneum was closed with 3-0 Monocryl in a running fashion. Gloves were changed prior to fascial closure. Fascia was closed with 0 PDS in a running fashion. Subcutaneous tissue was copiously irrigated and the skin was closed with 3-0 Monocryl in a subcuticular fashion. Mepilex dressing was applied without complication. Patient was taken to recovery in stable condition. It was discussed with the patient that based on the clinical information obtained during this encounter, combined with her history, at this time with her next delivery I would consider the option of vaginal delivery if spontaneous labor and a smaller infant size, otherwise recommend cesareans for future deliveries if further pregnancies are desired. Placental Delivery Description: Spontaneous Placenta Disposition: [facility] Cord Vessel Description: 3 Vessels Delayed Cord Clamping: Yes Complications Risks of Surgery Discussed w/Patient: Bleeding, Infection, Need for Future C-Sections and Injury to surrounding structure(s) including bowel and bladder Complications: none Admit VTE Documentation VTE Present on Admission: No VTE Mechan Device Prophylaxis: SCD's Multi Select Codes Urinary/Genital Urinary/Genital CPT Codes: 10211 delivery+PP Care([facility])
--- NOTE | 2023-08-17 22:31 | DCINST_ITS ---
Discharge Instructions Diet Discharge Diet: No restrictions Activity Discharge Activity: May Not Drive (for 2 weeks or while taking narcotic pain medications.), May Shower and May Take a Tub Bath (in 7 days) May shower in (days): 0 May resume sexual activity in: 4-6 weeks Weight Bearing Status: Full weight bearing Lifting Restrictions: 20 pounds Dressing / Incision Call your doctor if your incision/area has: Continuous Slow Oozing, Sudden Increased Bleeding, Increased Pain/ Swelling, Increased Redness and Foul Smelling Discharge Call your doctor if you observe: Fever of 101 or Higher and Using more than 1 pad per hour (for 2 hours) Suture Line Care: Avoid Pulling/Pushing and Avoid Pinching/Bending Cleanse incision/area with: Soap & Water and Keep Dressing Clean & Dry Follow Up Care Please Follow Up With: Chelo Adan MD When: Call [phone] to make an appointment for an incision check in 1-2 weeks. Test Results: Test results from this visit will be discussed in further detail at your follow- up appointment, if applicable. Discharge Plan Admission Admit Date/Time: 08/16/23 18:53 Attending Provider: Chelo Adan Primary Care Provider: Care Physician,Adelaida Primary Discharge Orders/Prescriptions Prescriptions: New oxycodone-acetaminophen [Percocet] 5-325 mg tablet 1 tab PO Q6H PRN (Reason: pain) 7 Days Qty: 20 0RF naproxen [naproxen] 500 mg tablet 500 mg PO BID PRN PRN (Reason: Pain) Qty: 30 1RF Continued PNV-DHA 27 mg iron-1 mg -300 mg capsule 1 cap PO DAILY famotidine [Pepcid] 20 mg tablet 20 mg PO DAILY aspirin 81 mg tablet,delayed release (DR/EC) 81 mg PO DAILY ferrous sulfate 325 mg (65 mg iron) tablet 325 mg PO DAILY Referrals / Follow Up: Care Physician,Adelaida Primary [Primary Care Provider] - Disposition Disposition (needs filled in before D/C Order can be placed): Home, Self Care
[2023-08-17] MEDS: Oxytocin 15 Units/NS 250ml 15 UNITS/250 ML IV.SOLN 83 UNITS IV (22:55)
[2023-08-17] MEDS: Acetaminophen 500 MG Tablet 1000 MG PO (23:12)
[2023-08-17] MEDS: Ketorolac 30 MG/ML Syringe IV (23:12)
[2023-08-18] VITALS (13 sets, daily range): BP systolic 100–118; BP diastolic 55–72; PULSE 92–104; RESP 16–20; TEMP 35.8–37.6; O2SAT 94–98
--- NOTE | 2023-08-18 00:38 | RAD_ITS ---
INDICATION: count OR COMPARISON: None. FINDINGS: 2 frontal views of the abdomen. Rounded opacity overlying the left iliac wing. Nonobstructive bowel gas pattern. No obvious free air. No definite suspicious calcifications. No mass appreciated. RAD/Abdomen Single View IMPRESSION: Rounded opacity overlying the left iliac wing, overlying artifact versus foreign body. Electronically Signed: Aric Weir MD at 2:32 EDT ,
[2023-08-18] MEDS: DiphenhydrAMINE 25 MG Capsule PO (01:29)
[2023-08-18] MEDS: Lactated Ringers 1,000 ML 100 ML IV (01:30)
[2023-08-18] MEDS: Acetaminophen 500 MG Tablet 1000 MG PO ×4 (04:54→23:34)
[2023-08-18] MEDS: Ketorolac 30 MG/ML Syringe IV ×3 (04:54→17:35)
[2023-08-18 05:09] LABS: Hematocrit 38.8 % (37-47); Hemoglobin 12.5 g/dL (12.0-15.0); Mean Corp Hgb Conc 32.2 g/dL (32-36); Mean Corpuscular Hgb 28.9 pg (27.0-32.0); Mean Corpuscular Volume 89.8 fL (81-99); Mean Platelet Vol. 10.8 fl (6.2-12.0); Platelet Count 192 K/mm3 (150-450); RBC Distribution Width CV 14.8 % (11.6-14.6); RBC Distribution Width SD 49.1 fl (35.1-43.9); Red Blood Count 4.32 M/mm3 (4.2-5.4); White Blood Count 16.9 K/mm3 (4.4-11.0)
--- NOTE | 2023-08-18 09:33 | PCM.PN.OB ---
Subjective Subjective Patient doing well without complaints. Tolerating PO. Ambulating and voiding without difficulty. Feeding well. Denies chest pain, shortness of breath, calf pain/swelling, fevers, chills, lightheadedness. Objective Data Objective Data Vital Signs: Vital Signs Temp Pulse Resp BP Pulse Ox O2 Del Method 96.5 F L 100 16 100/55 L 96 Room Air 08/18/23 06:33 08/18/23 06:33 08/18/23 06:33 08/18/23 06:33 08/18/23 06:33 08/18/23 06:33 Oxygen Delivery Method Room Air Weight: 190 lb Body Mass Index (BMI) 31.6 Intake & Output: Intake and Output for Last 24 Hours 08/16/23 08/17/23 08/18/23 23:59 23:59 23:59 Intake Total 62.5 / 62.5 4383.17 / 4383.17 450 / 450 Output Total 2500 / 2500 2000 / 2000 Balance 62.5 / 62.5 1883.17 / 1883.17 -1550 / -1550 Lab / Micro Data Attestation: I reviewed the patient's lab results. 08/18/23 05:00 Labs: Laboratory Results - last 24 hr 08/18/23 05:00: WBC 16.9 H, RBC 4.32, Hgb 12.5, Hct 38.8, MCV 89.8, MCH 28.9, MCHC 32.2, RDW Std Deviation 49.1 H, RDW Coeff of Swathi 14.8 H, Plt Count 192, MPV 10.8 Radiography Diagnostic Testing: Radiology Impression KUB X-Ray 08/18/23 00:38 IMPRESSION: Rounded opacity overlying the left iliac wing, overlying artifact versus foreign body. Electronically Signed: Aric Weir MD at 2:32 EDT , ROS Constitutional Constitutional: Reports systems reviewed and no addt'l complaints, except as documented; Denies anorexia or headache(s) Cardiovascular Cardiovascular: Reports systems reviewed and no addt'l complaints, except as documented; Denies dizziness, dyspnea, nausea or tachypnea Respiratory/Chest Respiratory/Chest: Reports systems reviewed and no addt'l complaints, except as documented; Denies cough, dyspnea, shortness of breath at rest or tachypnea Gastrointestinal Gastrointestinal: Reports systems reviewed and no addt'l complaints, except as documented; Denies abdominal pain, constipation or nausea Genitourinary Genitourinary: Reports systems reviewed and no addt'l complaints, except as documented; Denies burning urination, difficulty urinating, dysuria, urinary frequency or urinary incontinence Musculoskeletal Musculoskeletal: Reports systems reviewed and no addt'l complaints, except as documented Integumentary Integumentary: Reports systems reviewed and no addt'l complaints, except as documented Neurologic Neurologic: Reports systems reviewed and no addt'l complaints, except as documented; Denies abnormal speech, dizziness or headache(s) Psychiatric Psychiatric: Reports systems reviewed and no addt'l complaints, except as documented Endocrine Endocrinology: Reports systems reviewed and no addt'l complaints, except as documented Hematologic/Lymphatic Hematologic/Lymphatic: Reports systems reviewed and no addt'l complaints, except as documented Physical Exam Const alert, oriented x3 and no apparent distress Neck full ROM Resp normal respiratory effort, normal air movement and no retractions Effort and Inspection: able to speak in complete sentences and symmetric chest movement GI soft to palpation Inspection: incision intact and healing well Bladder / Kidney Exam: bladder normal to palpation Uterus Palpation: uterus fundus Extremity normal to inspection and full ROM Psych mental status grossly normal, thought process normal and cooperative Assessment & Plan (1) delivery delivered: COMMENT: 9 cm 39 IOL polyhydramnios, 8lb 7 ounces SM/KW recurrent lates ?small pelvis PLAN: s/p LTCS PPD # 1 1. routine post care 2. breast feeding- support given 3. rh positive 4. rubella immune Charges/Coding Multi Select Codes Urinary/Genital Urinary/Genital CPT Codes: No Charge
[2023-08-18] MEDS: Senna/Docusate Sodium 1 Tablet PO (10:22)
[2023-08-18] MEDS: Enoxaparin 40 MG/0.4 ML Syringe SC (10:23)
--- NOTE | 2023-08-18 10:51 | CASEMGMT ---
Addendum entered by Carmela Méndez 08/18/23 12:45: Social Work SW made a referral to [facility], they are not opening a case at this time. GISSELL Watkins Original Note: Social Work Labor and Delivery Unit Date/Time of Referral: 08/16/23, 19:49 Referred by: Dr. Marie Date/Time of intervention: 08/18/23, 10:15am Reason for referral: Parents addicts, FOB THC use, history of depression MOB History obtained from: [facility] Household composition: MOB, FOB, FOB's Aunt Hood and her two 18 year old children, and now baby Alona Melendez. They have been together for 1.5 years, but have been friends for longer. This is the first child for both of them. Parent guardian status: MOB guardian of the baby. Medical history: MOB--polyhydramnios, UTI during , GERD. Baby: Born 08[birth year], 21:57, Apgars 8 & 8, 3.84 kg. As per chart MOB had care. Educational Status: Both MOB and FOB completed high school and both did a semester or two of college. 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 FOBetty is a sales and service change leader with [employer]. They have no financial concerns. supplies: They have all the supplies they need including diapers, wipes, car seats, bassinet, crib, clothing. MOB plans to breast feed Childcare/Caregivers: FOBetty's mother will help, BOZENA's brother also would help. Transportation: They have 2 cars Programs/Agencies involved: [facility] Children's Services/Legal Issues: [facility] states has had legal issues in the past, none now. No Children's Services involvement. Behavioral Health Issues: MOB--reports a history of depression when younger, was in counseling also when younger. MOB states was in foster care in 9th grade and had anger issues. She has never been on medication. MOB states she has not struggled with depression the last two years, and also has not been in counseling the last two years. FOB--reports no mental health issues. Substance abuse: MOB--no history. FOB: reports to smoke marijuana recreationally every day. He has no plan to quit, not interested in any support around quitting. He states when he had some legal trouble in the past he was able to quit, but at this time not interested in quitting. Family history: MOB reports that her father, stepmother both have had substance abuse issues. She is not in touch w/her father, but does still speak w/her stepmother who is in [place]. She states her stepmother is clean now, but does suspect her father still uses. He drank and used drugs. Family/Social Stressors: None reported Support systems: FOB's aunt, mother, family. FOB states there are a lot of Yoders around. MOB reports her brother to be supportive. depression/Anxiety/Shaken Baby/Safe Sleeping/[facility] Resources/Help Me Grow/Mental Health resources: SW gave MOB information on all of the topics and reviewed all information w/MOB and FOB, in particular information on depression and anxiety. SW encouraged MOB to call her OB should she have symptoms of PPD, explained sometimes the doctor with prescribe a mood enhancer short term; MOB states understanding. SW also encouraged MOB to get joao into counseling should she start having depression symptoms. MOB states understanding. Assessment: MOB and FOB open and honest w/SW. FOB holding baby, very appropriate in his care of the child. SW does not have concerns, however will be calling Children's Services due to the marijuana use by FOB. Plan: Baby to go home w/FOB and MOB at discharge. GISSELL Watkins
[2023-08-18] MEDS: 0.9% Saline Lock 10 ML Syringe IV ×2 (11:00→17:36)
[2023-08-18] MEDS: SimETHICONE 80 MG Chewable Tablet PO (21:39)
[2023-08-18] MEDS: oxyCODONE 5 MG Tablet PO (22:23)
[2023-08-19 01:19] VITALS: BP 110/52; PULSE 125; RESP 18; TEMP 37.3; O2SAT 96
[2023-08-19 01:23] VITALS: PULSE 138; RESP 18; O2SAT 96
--- NOTE | 2023-08-19 01:26 | EKG12_ITS ---
Test Reason : TACHY Blood Pressure : / mmHG Vent. Rate : 118 BPM Atrial Rate : 118 BPM P-R Int : 158 ms QRS Dur : 082 ms QT Int : 314 ms P-R-T Axes : 038 084 018 degrees QTc Int : 440 ms Sinus tachycardia Otherwise normal ECG No previous ECGs available Confirmed by NARGIS AGUILAR, MAHAD ([id number]), scientific publications editor ALISA BERRY ([id number]) on 08/27/2023 11:09:28 AM Referred By: Chelo Adan Confirmed By:RAJEEV BARILLAS MD
[2023-08-19] MEDS: LACTATED RINGERS 500 ML 999 ML IV (01:45)
[2023-08-19 01:55] VITALS: PULSE 109; RESP 16; O2SAT 96
[2023-08-19] MEDS: Ibuprofen 600 MG Tablet PO ×2 (03:12→10:08)
[2023-08-19] MEDS: Acetaminophen 500 MG Tablet 1000 MG PO (05:32)
[2023-08-19 05:36] VITALS: PULSE 89; RESP 16; O2SAT 98
[2023-08-19 08:09] VITALS: BP 99/54; PULSE 83; RESP 16; TEMP 36.1; O2SAT 98
--- NOTE | 2023-08-19 10:28 | PCM.PN.OB ---
Subjective Subjective Patient doing well without complaints. Tolerating PO. Ambulating and voiding without difficulty. Feeding well. Denies chest pain, shortness of breath, calf pain/swelling, fevers, chills, lightheadedness. Objective Data Objective Data Vital Signs: Vital Signs Temp Pulse Resp BP Pulse Ox O2 Del Method 97.0 F L 83 16 99/54 L 98 Room Air 08/19/23 08:09 08/19/23 08:09 08/19/23 08:09 08/19/23 08:09 08/19/23 08:09 08/19/23 08:09 Oxygen Delivery Method Room Air Weight: 190 lb Body Mass Index (BMI) 31.6 Intake & Output: Intake and Output for Last 24 Hours 08/17/23 08/18/23 08/19/23 23:59 23:59 22:59 Intake Total 4383.17 / 4383.17 1450 / 1450 500 / 500 Output Total 2500 / 2500 2200 / 2200 Balance 1883.17 / 1883.17 -750 / -750 500 / 500 Lab / Micro Data Attestation: I reviewed the patient's lab results. 08/18/23 05:00 ROS Constitutional Constitutional: Reports systems reviewed and no addt'l complaints, except as documented; Denies anorexia or headache(s) Cardiovascular Cardiovascular: Reports systems reviewed and no addt'l complaints, except as documented; Denies dizziness, dyspnea, nausea or tachypnea Respiratory/Chest Respiratory/Chest: Reports systems reviewed and no addt'l complaints, except as documented; Denies cough, dyspnea, shortness of breath at rest or tachypnea Gastrointestinal Gastrointestinal: Reports systems reviewed and no addt'l complaints, except as documented; Denies abdominal pain, constipation or nausea Genitourinary Genitourinary: Reports systems reviewed and no addt'l complaints, except as documented; Denies burning urination, difficulty urinating, dysuria, urinary frequency or urinary incontinence Musculoskeletal Musculoskeletal: Reports systems reviewed and no addt'l complaints, except as documented Integumentary Integumentary: Reports systems reviewed and no addt'l complaints, except as documented Neurologic Neurologic: Reports systems reviewed and no addt'l complaints, except as documented; Denies abnormal speech, dizziness or headache(s) Psychiatric Psychiatric: Reports systems reviewed and no addt'l complaints, except as documented Endocrine Endocrinology: Reports systems reviewed and no addt'l complaints, except as documented Hematologic/Lymphatic Hematologic/Lymphatic: Reports systems reviewed and no addt'l complaints, except as documented Physical Exam Const alert, oriented x3 and no apparent distress Neck full ROM Resp normal respiratory effort, normal air movement and no retractions Effort and Inspection: able to speak in complete sentences and symmetric chest movement GI soft to palpation Bladder / Kidney Exam: bladder normal to palpation Uterus Palpation: uterus fundus firm Extremity normal to inspection and full ROM Psych mental status grossly normal, thought process normal and cooperative Assessment & Plan (1) delivery delivered: COMMENT: 9 cm 39 IOL polyhydramnios, 8lb 7 ounces SM/KW recurrent lates ?small pelvis PLAN: s/p LTCS PPD # 2 1. routine post care 2. breast feeding- support given 3. rh positive 4. rubella immune 5. discharge home Charges/Coding Multi Select Codes Urinary/Genital Urinary/Genital CPT Codes: No Charge
--- NOTE | 2023-08-19 10:32 | DCINST_ITS ---
Discharge Instructions Diet Discharge Diet: No restrictions Activity May shower in (days): 0 May resume sexual activity in: 4-6 weeks Weight Bearing Status: Full weight bearing Dressing / Incision Call your doctor if your incision/area has: Continuous Slow Oozing, Sudden Increased Bleeding, Increased Pain/ Swelling, Increased Redness and Foul Smelling Discharge Call your doctor if you observe: Fever of 101 or Higher and Using more than 1 pad per hour (for 2 hours) Suture Line Care: Avoid Pulling/Pushing and Avoid Pinching/Bending Cleanse incision/area with: Soap & Water and Keep Dressing Clean & Dry Follow Up Care Please Follow Up With: Chelo Adan MD Test Results: Test results from this visit will be discussed in further detail at your follow- up appointment, if applicable. Discharge Plan Admission Admit Date/Time: 08/16/23 18:53 Attending Provider: Chelo Adan Primary Care Provider: Care Physician,No Primary Discharge Orders/Prescriptions Prescriptions: New oxycodone-acetaminophen [Percocet] 5-325 mg tablet 1 tab PO Q6H PRN (Reason: pain) 7 Days Qty: 20 0RF naproxen [naproxen] 500 mg tablet 500 mg PO BID PRN PRN (Reason: Pain) Qty: 30 1RF Continued PNV-DHA 27 mg iron-1 mg -300 mg capsule 1 cap PO DAILY famotidine [Pepcid] 20 mg tablet 20 mg PO DAILY aspirin 81 mg tablet,delayed release (DR/EC) 81 mg PO DAILY ferrous sulfate 325 mg (65 mg iron) tablet 325 mg PO DAILY Referrals / Follow Up: Care Physician,No Primary [Primary Care Provider] - Disposition Disposition (needs filled in before D/C Order can be placed): Home, Self Care
== END 2023-08-19 11:05 | disposition home or self-care (01) | DRG 540 ==
PROVIDERS: Advanced Practice Midwife; Admitting Provider Obstetrics & Gynecology; Referring Provider Obstetrics & Gynecology; Visit Provider Obstetrics & Gynecology
DX: O76 Abnormality in fetal heart rate and rhythm complicating labor and delivery (principal); O40.3XX0 Polyhydramnios, third trimester, not applicable or unspecified; J30.2 Other seasonal allergic rhinitis; K21.9 Gastro-esophageal reflux disease without esophagitis; O26.843 Uterine size-date discrepancy, third trimester; O99.52 Diseases of the respiratory system complicating childbirth; Z87.891 Personal history of nicotine dependence; O99.62 Diseases of the digestive system complicating childbirth; O99.02 Anemia complicating childbirth; Z37.0 Single live birth; Z3A.39 39 weeks gestation of pregnancy; Z86.16 Personal history of COVID-19
CPT/HCPCS: 36415; 59025; 59050; 74018; 83036; 85025; 85027; 86780; 86850; 86900; 86901; 93005; 99221; J7030; J7120; A4216; G0378; J2405